=== PATIENT | male | born 2000 | race Caucasian/White ===

== ENCOUNTER 2021-04-14 23:44 | Inpatient (IN) ==
[2021-04-15 02:02] LABS: ABS Eosinophils 0.1 10^3/ul (0-0.6); ABS Monocytes 0.4 10^3/ul (0-0.8); ABS Neutrophils 3.4 10^3/ul (1.5-7.7); Eosinophil % 1.4 %; Hematocrit 41 % (42-52); Hemoglobin 13.9 g/dL (14.0-18.0); Lymphocyte % 33.7 %; Mean Corpuscular HGB Conc 34 g/dL (31-36); Mean Corpuscular Hemoglobin 30 pg (27-31); Mean Corpuscular Volume 90 fL (80-94); Platelet Count 287 10^3/uL (150-450); Red Blood Count 4.61 10^6 /uL (4.18-5.48); Red Cell Distribution Width 14 % (10-15); White Blood Count 5.8 10^3/uL (3.5-10.8)
[2021-04-15 02:03] LABS: Urine Appearance Clear; Urine Bilirubin Negative (Negative); Urine Blood Negative (Negative); Urine Color Yellow; Urine Glucose Negative (Negative); Urine Ketones Negative (Negative); Urine Nitrite Negative (Negative); Urine Protein Negative (Negative); Urine Specific Gravity 1.018 (1.002-1.030); Urine Urobilinogen Negative (Negative)
[2021-04-15 02:08] LABS: Albumin 4.6 g/dL (3.2-5.2); Anion Gap 6 mmol/L (2-11); CO2 Carbon Dioxide 28 mmol/L (22-32); Calcium 9.7 mg/dL (8.6-10.3); Chloride 103 mmol/L (101-111); Sodium 137 mmol/L (135-145)
[2021-04-15 02:13] LABS: Acetaminophen < 15 mcg/mL; Alcohol, S < 13 mg/dL (<13); Salicylate < 2.50 mg/dL (<30)
[2021-04-15 02:14] LABS: ALT 18 U/L (7-52); AST 25 U/L (13-39); Albumin/Globulin Ratio 1.8 (1-3); Alkaline Phosphatase 82 U/L (35-149); Blood Urea Nitrogen 26 mg/dL (6-24); Globulin 2.6 g/dL (2-4); Glucose 90 mg/dL (70-100); Total Protein 7.2 g/dL (6.4-8.9)
[2021-04-15 02:20] LABS: Urine Benzodiazepine Screen None Detected (None Detect); Urine Cannabinoids Screen None Detected (None Detect); Urine Opiates Screen None Detected (None Detect)
[2021-04-15 04:19] LABS: TSH Ultra Thyroid Stim Horm 6.73 mcIU/mL (0.34-5.60)
[2021-04-15 06:36] LABS: Rapid COVID-19 Molecular Undetected (Undetected)
[2021-04-15] MEDS ORDERED: Al Hydrox/Mg Hydrox/Simet LIQ 30 ML UDC PO PRN (08:33)
[2021-04-15] MEDS: Vitamin THERAPEUTIC TAB PO SCH (10:07)
[2021-04-15 12:46] LABS: Free T4 0.88 ng/dL (0.61-1.12)
[2021-04-16] MEDS: Vitamin THERAPEUTIC TAB PO SCH (09:22)
[2021-04-16 09:30] VITALS: BP 125/66
== END 2021-04-16 14:30 | disposition home or self-care (01) | DRG 755 ==
LOC: ED 23:44 → BSU 04-15 06:05
PROVIDERS: ADMIT Psychiatry & Neurology Psychiatry; ATTEND Psychiatry & Neurology Psychiatry